=== PATIENT | male | born 1935 | race Two or more races ===

== ENCOUNTER 2017-12-06 18:55 | Observation (INO) | payer OTHER, MEDICARE ==
[2017-12-06] MEDS ORDERED: NA CHLORIDE 0.9% 1,000 ML ONE (20:05)
[2017-12-06 20:09] LABS: Absolute Lymphocytes (CBC) 0.8 K/uL (0.7-4.9); Absolute Monocytes 0.5 K/uL (0.1-1.3); Absolute Neutrophil 3.7 K/uL (1.8-8.0); Basophils % 1.2 % (0-1.3); Eosinophils % 3.1 % (0-4.4); Hematocrit 45.2 % (39.6-49.0); Lymphocytes % 15.1 % (15.3-44.8); MCH 33.8 pg (27.0-35.0); MCV 96.4 fL (80-100); MPV 8.2 fL (7.6-11.3); Monocytes % 9.7 % (3.3-12.3); RBC Red Blood Cell Count 4.69 M/uL (4.33-5.43)
[2017-12-06 20:25] LABS: Protime INR 0.97
[2017-12-06] MEDS ORDERED: METHYLPREDNISOLONE 125 MG INJ ONE (20:35)
[2017-12-06 20:38] LABS: ALT/SGPT 28 U/L (12-78); AST/SGOT 27 U/L (15-37); Alkaline Phosphatase 70 U/L (45-117); BUN Blood Urea Nitrogen 22 mg/dL (7-18); Bicarbonate 29 mmol/L (21-32); Bilirubin Direct 0.1 mg/dL (0-0.2); Bilirubin Total 0.5 mg/dL (0.2-1.0); Glucose Level 115 mg/dL (74-106); Lipase 303 U/L (73-393); Magnesium 2.5 mg/dL (1.8-2.4); NT PRO-BNP 40 pg/mL (<450); Potassium 3.6 mmol/L (3.5-5.1); Protein, Total 7.9 g/dL (6.4-8.2); Sodium Level 140 mmol/L (136-145); Troponin (Emerg Dept Use Only) < 0.02 ng/mL (0.0-0.045)
--- NOTE | 2017-12-06 21:25 | ER ---
Nurse's Notes [facility] Name: Emile Pereira Age: 82 yrs Sex: Male : 1935 Arrival Date: 12/06/2017 Time: 18:57 Bed 8 Private MD: Sumeet Connelly Diagnosis: Chronic obstructive pulmonary disease with (acute) exacerbation;Hypotension-resolved Presentation: 12/06 19:04 Presenting complaint: Patient states: Low BP since 1200 today. Systolic reportedly ss 80/?? per patient. Patient was told to come be evaluated in ER by Dr. Melendez. Transition of care: patient was not received from another setting of care. Onset of symptoms was December 06, 2017. Risk Assessment: Do you want to hurt yourself or someone else? Patient reports no desire to harm self or others. Initial Sepsis Screen: Does the patient meet any 2 criteria? No. Patient's initial sepsis screen is negative. Does the patient have a suspected source of infection? No. Patient's initial sepsis screen is negative. Care prior to arrival: None. 19:04 Method Of Arrival: Ambulatory ss 19:04 Acuity: SONNY 3 ss Historical: - Allergies: 19:38 "All antibiotics except clindamycin"; aa1 - Home Meds: 19:38 valsartan 160 mg oral tab 1 tab once daily [Active]; spironolactone 25 mg Oral tab 1 aa1 tab as needed [Active]; mometasone inhalation inhalation [Active]; Xopenex Inhl [Active]; Singulair 10 mg Oral tab 1 tab once daily [Active]; - PMHx: 19:38 Hypertension; Asthma; aa1 - PSHx: 19:38 None; aa1 - Immunization history:: Pneumococcal vaccine is not up to date, Flu vaccine is not up to date. - Social history:: Smoking status: Patient/guardian denies using tobacco. - Ebola Screening: : Patient denies exposure to infectious person Patient denies travel to an Ebola-affected area in the 21 days before illness onset. - Family history:: not pertinent. Screenin:28 Abuse screen: Denies threats or abuse. Denies injuries from another. Nutritional aa1 screening: No deficits noted. Tuberculosis screening: No symptoms or risk factors identified. Fall Risk None identified. Assessment: 19:28 General: Appears in no apparent distress. comfortable, slender, Behavior is calm, aa1 cooperative, appropriate for age. Pain: Denies pain. Neuro: Level of Consciousness is awake, alert, obeys commands, Oriented to person, place, time, situation, Moves all extremities. Full function Gait is steady, Speech is normal, Facial symmetry appears normal, Pupils are PERRLA. Cardiovascular: Denies chest pain, diaphoresis, palpitations, shortness of breath, Heart tones S1 S2 present Rhythm is regular. Respiratory: Airway is patent Respiratory effort is even, unlabored, Respiratory pattern is regular, symmetrical, Denies shortness of breath. GI: Abdomen is non-distended, Reports nausea, Patient currently denies abdominal pain, diarrhea, vomiting. : No signs and/or symptoms were reported regarding the genitourinary system. EENT: No signs and/or symptoms were reported regarding the EENT system. Derm: Skin is intact, is healthy with good turgor, Skin is pink, warm \\T\\ dry. Musculoskeletal: Circulation, motion, and sensation intact. Capillary refill < 3 seconds. 20:30 Reassessment: Patient appears in no apparent distress at this time. Patient and/or aa1 family updated on plan of care and expected duration. Pain level reassessed. Patient is alert, oriented x 3, equal unlabored respirations, skin warm/dry/pink. Awaiting lab results. 21:27 Reassessment: Patient appears in no apparent distress at this time. Patient and/or aa1 family updated on plan of care and expected duration. Pain level reassessed. Patient is alert, oriented x 3, equal unlabored respirations, skin warm/dry/pink. Pt to be admitted, awaiting bed assignment. 21:40 Reassessment: Bed assignment received, awaiting admission orders from Dr. Diehl. aa1 22:30 Reassessment: Patient appears in no apparent distress at this time. Patient and/or aa1 family updated on plan of care and expected duration. Pain level reassessed. Patient is alert, oriented x 3, equal unlabored respirations, skin warm/dry/pink. Still awaiting admission orders from Dr. Deihl. 22:48 Reassessment: Attempted to call report to 4th floor, nurse states she will call back aa1 shortly. 23:30 Reassessment: Patient appears in no apparent distress at this time. Patient and/or aa1 family updated on plan of care and expected duration. Pain level reassessed. Patient is alert, oriented x 3, equal unlabored respirations, skin warm/dry/pink. Receiving nurse on floor is with critical pt as well as charge nurse. Floor staff reports they will have nurse call for report as soon as she is able. 12/07 00:10 Reassessment: Patient appears in no apparent distress at this time. Patient is alert, aa1 oriented x 3, equal unlabored respirations, skin warm/dry/pink. Report given to 4th floor. Vital Signs: 12/06 19:04 BP 127 / 82; Pulse 87; Resp 16; Temp 98.4(O); Pulse Ox 96% on R/A; Weight 56.25 kg; ss Height 5 ft. 3 in. (160.02 cm); Pain 0/10; 20:00 BP 127 / 92; Pulse 80; Resp 16; Pulse Ox 99% on R/A; Pain 0/10; aa1 21:07 BP 131 / 80; Pulse 86; Resp 16; Pulse Ox 98% on R/A; Pain 0/10; aa1 21:30 BP 138 / 76 Supine; Pulse 89; Resp 18 S; Pulse Ox 98% on R/A; cc 21:30 BP 131 / 70 Sitting; Pulse 88; Resp 18 S; Pulse Ox 97% on R/A; cc 21:30 BP 148 / 92 Standing; Pulse 94; Resp 19 S; Pulse Ox 97% on R/A; cc 22:31 BP 146 / 85; Pulse 87; Resp 18; Temp 98.5; Pulse Ox 98% on R/A; Pain 0/10; aa1 12/07 00:00 BP 147 / 92; Pulse 91; Resp 16; Pulse Ox 98% on R/A; Pain 0/10; aa1 12/06 19:04 Body Mass Index 21.97 (56.25 kg, 160.02 cm) NIH Stroke Scale Scores: 12/06 20:15 NIHSS Score: 0 [place] ED Course: 18:57 Patient arrived in ED. mr 18:57 Sumeet Connelly MD is Private Physician. mr 19:00 Gaviota Veliz RN is Primary Nurse. aa1 19:04 Arm band placed on right wrist. 19:05 Triage completed. 19:25 Chris Dill MD is Attending Physician. alan 19:25 EKG done, by ED staff, reviewed by Chris Dill MD. aa1 19:28 Patient has correct armband on for positive identification. Placed in gown. Bed in low aa1 position. Call light in reach. hospital monitor on. Pulse ox on. NIBP on. 19:45 Initial lab(s) drawn, by me, sent to lab. First set of blood cultures drawn by me. cc Inserted saline lock: 20 gauge in left antecubital area, using aseptic technique. Blood collected. 21:24 Priscilla Diehl MD is Hospitalizing Provider. alan 22:32 No provider procedures requiring assistance completed. Patient admitted, IV remains in aa1 place. Administered Medications: 20:04 Drug: NS 0.9% 500 ml Route: IV; Rate: bolus; Site: right antecubital; aa1 21:09 Follow up: IV Status: Completed infusion aa1 20:27 Not Given (Patient Refused): Xopenex 1.25 mg Inhalation once aa1 20:27 Not Given (Patient Refused): AtroVENT Aerosol 0.5 mg Inhalation once aa1 20:33 Drug: SOLU-Medrol 2 mg/kg Route: IVP; Site: left antecubital; aa1 21:27 Follow up: Response: No adverse reaction aa1 20:47 Not Given (Duplicate Order): NS 0.9% 1000 ml IV at 125 ml/hr continuous alan 21:09 Drug: NS 0.9% 1000 ml Route: IV; Rate: 125 ml/hr; Site: left antecubital; aa1 21:27 Follow up: Rate change 50 ml/hr aa1 22:32 Follow up: IV Status: Infusion continued upon admission aa1 Outcome: 21:24 Decision to Hospitalize by Provider. [place] 12/07 00:01 Admitted to Tele room 402, with chart, Report called to Michelle MEZA bb Condition: stable Instructed on the need for admit. 00:35 Patient left the ED. aa1 NIH Stroke Scale - NIH Stroke Score Date: 12/06/2017 Time: 20:15 Total Score = 0 1a. Level of Consciousness (LOC) - 0(Alert) 1b. Level of Consciousness (LOC) (Year \\T\\ Age) - 0(Both) 1c. LOC Commands (Open \\T\\ Closes Eyes/Licensed Final Expense Agents) - 0(Both) 2. Best Gaze (Lateral Gaze Paresis) - 0(Normal) 3. Visual Field Loss - 0(No visual loss) 4. Facial Palsy - 0(Normal) 5a. Left Arm: Motor (10-second hold) - 0(No drift) 5b. Right Arm: Motor (10-second hold) - 0(No drift) 6a. Left Leg: Motor (5-second hold - always test supine) - 0(No drift) 6b. Right Leg: Motor (5-second hold - always test supine) - 0(No drift) 7. Limb Ataxia (finger/nose \\T\\ heel/toney - test with eyes open) - 0(Absent) 8. Sensory Loss (pinprick arms/legs/face) - 0(Normal) 9. Best Language: Aphasia (description/naming/reading) - 0(No aphasia) 10. Dysarthria (speech clarity - read or repeat words) - 0(Normal) 11. Extinction and Inattention (visual/tactile/auditory/spatial/personal) - 0(No abnormality) Initials: alan Signatures: Gaviota Veliz, SUSANA RN aa1 Chris Dill MD MD cha Rivera, Mary mr Yris Grijalva, RN RN Vanessa Bower RN RN ss Christian, Chelsea cc
--- NOTE | 2017-12-06 21:25 | EDPHYS ---
Physician Documentation [facility] Name: Emile Pereira Age: 82 yrs Sex: Male : 1935 Arrival Date: 12/06/2017 Time: 18:57 Bed 8 Private MD: Sumeet Connelly ED Physician Chris Dill HPI: 12/06 20:12 This 82 yrs old Male presents to ER via Ambulatory with complaints of Blood alan Pressure Problem. 20:12 weak, low blood pressure. The patient presents with dizziness. Onset: The alan symptoms/episode began/occurred just prior to arrival, this morning, today. Context: occurred at home, occurred while the patient was unk. Modifying factors: The symptoms are alleviated by nothing, the symptoms are aggravated by nothing. Associated signs and symptoms: The patient has no apparent associated signs or symptoms. Associated signs and symptoms: Pertinent positives: nausea. The patient or guardian reports cough. Severity of symptoms: At their worst the symptoms were mild, moderate, in the emergency department the symptoms are unchanged. Severity of symptoms: At their worst the symptoms were mild moderate in the emergency department the symptoms are unchanged. Historical: - Allergies: 19:38 "All antibiotics except clindamycin"; aa1 - Home Meds: 19:38 valsartan 160 mg oral tab 1 tab once daily [Active]; spironolactone 25 mg Oral tab 1 aa1 tab as needed [Active]; mometasone inhalation inhalation [Active]; Xopenex Inhl [Active]; Singulair 10 mg Oral tab 1 tab once daily [Active]; - PMHx: 19:38 Hypertension; Asthma; aa1 - PSHx: 19:38 None; aa1 - Immunization history:: Pneumococcal vaccine is not up to date, Flu vaccine is not up to date. - Social history:: Smoking status: Patient/guardian denies using tobacco. - Ebola Screening: : Patient denies exposure to infectious person Patient denies travel to an Ebola-affected area in the 21 days before illness onset. - Family history:: not pertinent. ROS: 20:12 Constitutional: Negative for fever, chills, and weight loss, Eyes: Negative for injury, alan pain, redness, and discharge, ENT: Negative for injury, pain, and discharge, Neck: Negative for injury, pain, and swelling, Cardiovascular: Negative for chest pain, palpitations, and edema, Abdomen/GI: Negative for abdominal pain, nausea, vomiting, diarrhea, and constipation, Back: Negative for injury and pain, : Negative for injury, bleeding, discharge, and swelling, MS/Extremity: Negative for injury and deformity, Skin: Negative for injury, rash, and discoloration, Neuro: Negative for headache, weakness, numbness, tingling, and seizure, Psych: Negative for depression, anxiety, suicide ideation, homicidal ideation, and hallucinations, Allergy/Immunology: Negative for hives, rash, and allergies, Endocrine: Negative for neck swelling, polydipsia, polyuria, polyphagia, and marked weight changes, Hematologic/Lymphatic: Negative for swollen nodes, abnormal bleeding, and unusual bruising. 20:12 Respiratory: Positive for cough. 20:12 Neuro: Positive for dizziness. Exam: 20:12 Constitutional: This is a well developed, well nourished patient who is awake, alert, alan and in no acute distress. Head/Face: Normocephalic, atraumatic. Eyes: Pupils equal round and reactive to light, extra-ocular motions intact. Lids and lashes normal. Conjunctiva and sclera are non-icteric and not injected. Cornea within normal limits. Periorbital areas with no swelling, redness, or edema. ENT: Nares patent. No nasal discharge, no septal abnormalities noted. Tympanic membranes are normal and external auditory canals are clear. Oropharynx with no redness, swelling, or masses, exudates, or evidence of obstruction, uvula midline. Mucous membranes moist. Neck: Trachea midline, no thyromegaly or masses palpated, and no cervical lymphadenopathy. Supple, full range of motion without nuchal rigidity, or vertebral point tenderness. No Meningismus. Chest/axilla: Normal chest wall appearance and motion. Nontender with no deformity. No lesions are appreciated. Cardiovascular: Regular rate and rhythm with a normal S1 and S2. No gallops, murmurs, or rubs. Normal PMI, no JVD. No pulse deficits. Abdomen/GI: Soft, non-tender, with normal bowel sounds. No distension or tympany. No guarding or rebound. No evidence of tenderness throughout. Back: No spinal tenderness. No costovertebral tenderness. Full range of motion. Male : Normal genitalia with no discharge or lesions. Skin: Warm, dry with normal turgor. Normal color with no rashes, no lesions, and no evidence of cellulitis. MS/ Extremity: Pulses equal, no cyanosis. Neurovascular intact. Full, normal range of motion. Neuro: Awake and alert, GCS 15, oriented to person, place, time, and situation. Cranial nerves II-XII grossly intact. Motor strength 5/5 in all extremities. Sensory grossly intact. Cerebellar exam normal. Normal gait. Psych: Awake, alert, with orientation to person, place and time. Behavior, mood, and affect are within normal limits. 20:12 Respiratory: the patient does not display signs of respiratory distress, Breath sounds: rhonchi, wheezing: expiratory is heard in the left posterior lower lobe, right posterior middle lobe and right posterior lower lobe, Respiratory rate: 16 Vital Signs: 19:04 BP 127 / 82; Pulse 87; Resp 16; Temp 98.4(O); Pulse Ox 96% on R/A; Weight 56.25 kg; ss Height 5 ft. 3 in. (160.02 cm); Pain 0/10; 20:00 BP 127 / 92; Pulse 80; Resp 16; Pulse Ox 99% on R/A; Pain 0/10; aa1 21:07 BP 131 / 80; Pulse 86; Resp 16; Pulse Ox 98% on R/A; Pain 0/10; aa1 21:30 BP 138 / 76 Supine; Pulse 89; Resp 18 S; Pulse Ox 98% on R/A; cc 21:30 BP 131 / 70 Sitting; Pulse 88; Resp 18 S; Pulse Ox 97% on R/A; cc 21:30 BP 148 / 92 Standing; Pulse 94; Resp 19 S; Pulse Ox 97% on R/A; cc 22:31 BP 146 / 85; Pulse 87; Resp 18; Temp 98.5; Pulse Ox 98% on R/A; Pain 0/10; aa1 12/07 00:00 BP 147 / 92; Pulse 91; Resp 16; Pulse Ox 98% on R/A; Pain 0/10; aa1 12/06 19:04 Body Mass Index 21.97 (56.25 kg, 160.02 cm) NIH Stroke Scale Scores: 12/06 20:15 NIHSS Score: 0 alan MDM: 19:33 Patient medically screened. alan 20:12 Data reviewed: vital signs, nurses notes, lab test result(s), EKG, radiologic studies, [facility] CT scan, plain films. 12/06 19:31 Order name: Basic Metabolic Panel; Complete Time: 20:45 [facility] 12/06 19:31 Order name: CBC with Diff; Complete Time: 20:45 [facility] 12/06 19:31 Order name: LFT's; Complete Time: 20:45 [facility] 12/06 19:31 Order name: Magnesium; Complete Time: 20:45 [facility] 12/06 19:31 Order name: NT PRO-BNP; Complete Time: 20:45 [facility] 12/06 19:31 Order name: PT-INR; Complete Time: 20:45 [facility] 12/06 19:31 Order name: Troponin (emerg Dept Use Only); Complete Time: 20:45 [facility] 12/06 19:31 Order name: Lipase; Complete Time: 20:45 [facility] 12/06 19:31 Order name: Urine Culture [facility] 12/06 19:31 Order name: Blood Culture Adult (2) [facility] 12/06 19:31 Order name: Procalcitonin; Complete Time: 21:23 [facility] 12/06 22:17 Order name: Urine Dipstick--Ancillary (enter results) [place] 12/06 19:28 Order name: EKG; Complete Time: 19:44 [facility] 12/06 19:28 Order name: EKG - Nurse/Tech; Complete Time: 19:28 [facility] 12/06 19:31 Order name: Cardiac monitoring; Complete Time: 19:36 [facility] 12/06 19:31 Order name: IV Saline Lock; Complete Time: 19:55 [facility] 12/06 19:31 Order name: Labs collected and sent; Complete Time: 19:56 [facility] 12/06 19:31 Order name: O2 Per Protocol; Complete Time: 19:35 [facility] 12/06 19:31 Order name: O2 Sat Monitoring; Complete Time: 19:35 [facility] 12/06 19:31 Order name: Urine Dipstick-Ancillary (obtain specimen); Complete Time: 22:12 [facility] 12/06 21:17 Order name: Orthostatics; Complete Time: 21:27 12/06 21:29 Order name: CONS Physician Consult EDMS Administered Medications: 20:04 Drug: NS 0.9% 500 ml Route: IV; Rate: bolus; Site: right antecubital; aa1 21:09 Follow up: IV Status: Completed infusion aa1 20:27 Not Given (Patient Refused): Xopenex 1.25 mg Inhalation once aa1 20:27 Not Given (Patient Refused): AtroVENT Aerosol 0.5 mg Inhalation once aa1 20:33 Drug: SOLU-Medrol 2 mg/kg Route: IVP; Site: left antecubital; aa1 21:27 Follow up: Response: No adverse reaction aa1 20:47 Not Given (Duplicate Order): NS 0.9% 1000 ml IV at 125 ml/hr continuous alan 21:09 Drug: NS 0.9% 1000 ml Route: IV; Rate: 125 ml/hr; Site: left antecubital; aa1 21:27 Follow up: Rate change 50 ml/hr aa1 22:32 Follow up: IV Status: Infusion continued upon admission aa1 Disposition: 12/06/17 21:24 Hospitalization ordered by Priscilla Diehl for Observation. Preliminary diagnosis are Chronic obstructive pulmonary disease with (acute) exacerbation, Hypotension - resolved. - Bed requested for Telemetry/MedSurg (observation). - Status is Observation. aa1 - Condition is Fair. - Problem is new. - Symptoms have improved. UTI on Admission? No NIH Stroke Scale - NIH Stroke Score Date: 12/06/2017 Time: 20:15 Total Score = 0 1a. Level of Consciousness (LOC) - 0(Alert) 1b. Level of Consciousness (LOC) (Year \\T\\ Age) - 0(Both) 1c. LOC Commands (Open \\T\\ Closes Eyes/Head Start Director) - 0(Both) 2. Best Gaze (Lateral Gaze Paresis) - 0(Normal) 3. Visual Field Loss - 0(No visual loss) 4. Facial Palsy - 0(Normal) 5a. Left Arm: Motor (10-second hold) - 0(No drift) 5b. Right Arm: Motor (10-second hold) - 0(No drift) 6a. Left Leg: Motor (5-second hold - always test supine) - 0(No drift) 6b. Right Leg: Motor (5-second hold - always test supine) - 0(No drift) 7. Limb Ataxia (finger/nose \\T\\ heel/toney - test with eyes open) - 0(Absent) 8. Sensory Loss (pinprick arms/legs/face) - 0(Normal) 9. Best Language: Aphasia (description/naming/reading) - 0(No aphasia) 10. Dysarthria (speech clarity - read or repeat words) - 0(Normal) 11. Extinction and Inattention (visual/tactile/auditory/spatial/personal) - 0(No abnormality) Initials: alan Signatures: Dispatcher [employer] EDMS Shweta Muñoz RN RN Gaviota Veliz RN RN aa1 Buffy Steward RN RN aj Anderson, Corey, MD MD cha Smirch, Shelby, RN RN ss Corrections: (The following items were deleted from the chart) 20:32 19:45 Chest Single View+[id number] ordered. EDMS EDMS 21:39 21:24 Hospitalization Ordered by Priscilla Diehl MD for Observation. Preliminary diagnosis is Chronic obstructive pulmonary disease with (acute) exacerbation; Hypotension - resolved. Bed requested for Telemetry/MedSurg (observation). Status is Observation. Condition is Fair. Problem is new. Symptoms have improved. UTI on Admission? No. [facility] 12/07 00:35 12/06 21:39 12/06/2017 21:24 Hospitalization Ordered by Priscilla Diehl MD for aa1 Observation. Preliminary diagnosis is Chronic obstructive pulmonary disease with (acute) exacerbation; Hypotension - resolved. Bed requested for Telemetry/MedSurg (observation). Status is Observation. Condition is Fair. Problem is new. Symptoms have improved. UTI on Admission? No. mw
[2017-12-06] MEDS ORDERED: ONDANSETRON 4 MG/2 ML VIAL IV PRN (22:28)
[2017-12-06] MEDS ORDERED: ACETAMINOPHEN 500 MG TAB PO PRN (22:28)
[2017-12-06] MEDS: NA CHLORIDE 0.9% 1,000 ML IV SCH (23:00)
[2017-12-07 00:47] VITALS: O2SAT 98
[2017-12-07 01:00] VITALS: BMI 22.8
[2017-12-07 01:10] LABS: Urine Blood NEGATIVE (NEG); Urine Glucose NEGATIVE (NEG); Urine Protein NEGATIVE (NEG); Urine Specific Gravity 1.015 (1.005-1.030); Urine pH 5.5 (5.0-7.0)
[2017-12-07 06:01] LABS: Absolute Lymphocytes (CBC) 0.4 K/uL (0.7-4.9); Absolute Neutrophil 4.9 K/uL (1.8-8.0); Basophils % 0.2 % (0-1.3); Hematocrit 43.9 % (39.6-49.0); Lymphocytes % 7.1 % (15.3-44.8); MCH 34.4 pg (27.0-35.0); MCV 96.3 fL (80-100); MPV 8.5 fL (7.6-11.3); Monocytes % 0.3 % (3.3-12.3); RBC Red Blood Cell Count 4.56 M/uL (4.33-5.43)
[2017-12-07 06:14] LABS: Albumin 3.7 g/dL (3.4-5.0); Bilirubin Total 0.4 mg/dL (0.2-1.0); Potassium 4.3 mmol/L (3.5-5.1); Protein, Total 7.5 g/dL (6.4-8.2)
[2017-12-07 06:39] LABS: Protime INR 1.01
--- NOTE | 2017-12-07 06:43 | EKG ---
Test Date: 2017-12-06 Test Time: 19:24:34 Painting Contractor: DAGOBERTO MEASUREMENT RESULTS: Intervals: Rate: 73 FL: 202 QRSD: 108 QT: 388 QTc: 427 [place]: P: 77 FL: 202 QRS: 23 T: 65 INTERPRETIVE STATEMENTS: Normal sinus rhythm Normal ECG Compared to ECG 05/09/2015 23:33:59 No significant changes Electronically Signed On 12-07-17 06:43:10 CDT by Endy Melendez
[2017-12-07 07:19] LABS: Platelet Estimate ADEQ; Urine White Blood Cell Casts OK
[2017-12-07 07:20] LABS: Blood Morphology Comment NOT SEEN (NOT SEEN)
[2017-12-07] MEDS ORDERED: LEVALBUTEROL TARTRATE IH SCH (08:00)
[2017-12-07] MEDS: NA CHLORIDE 0.9% 1,000 ML IV SCH (08:09)
[2017-12-07] MEDS ORDERED: VALSARTAN 80 MG TAB PO SCH (09:00)
[2017-12-07] MEDS ORDERED: MOMETASONE FUROATE IH SCH (09:00)
--- NOTE | 2017-12-07 11:12 | P.HP ---
Certification for Inpatient Patient admitted to: Observation With expected LOS: <2 Midnights Patient will require the following post-hospital care: None Practitioner: I am a practitioner with admitting privileges, knowledge of patient current condition, hospital course, and medical plan of care. 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 Patient had been monitoring his blood pressure at home after he was told that he had arrhythmias a week prior. Patient had multiple PVCs as well as bigeminy. Patient notified his netting inspector when he checked his blood pressure and it was running low. He tried to drink some coffee intake a nap but even when he awoke his blood pressure was 80 over 50s. He decided come to the emergency room for further evaluation. In the emergency room patient was clinically stable & his initial blood pressure was 130s over 70s. Since his blood pressure has been running 80s over 50 throughout the day. We decided to admit him to the hospital for observation and place him on telemetry with a cardiology consultation. Allergies aspirin Allergy (Verified 12/07/17 07:45) Anaphylaxis Hlempst-Hex-Cut Reductase Inhibitor Adverse Reaction (Severe, Verified 12/07/17 07:45) seecom All antibiotics except clindamycin Allergy (Uncoded 12/26/14 20:28) Unknown Home Medications: Calcium Citrate [Calcitrate] 600 mg PO SEECOM 12/07/17 Cholecalciferol (Vitamin D3) [Vitamin D3] 2,000 unit PO SEECOM 12/07/17 Curopro 1,000 mg PO DAILY 12/07/17 Cyanocobalamin (Vitamin B-12) [Vitamin B12] 1,000 mcg PO DAILY 12/07/17 Folic Acid 0.4 mg PO SEECOM 12/07/17 Levalbuterol Tartrate [Levalbuterol Tartrate Hfa] 2 puff IH PRN 12/07/17 Magnesium Oxide [Magnesium] 500 mg PO DAILY 12/07/17 Mometasone Furoate [Asmanex Hfa] 2 puff IH BID 12/07/17 Montelukast [Singulair] 10 mg PO BEDTIME 12/07/17 Ubidecarenone [Co Q-10] 100 mg PO DAILY 12/07/17 Valsartan [Diovan] 160 mg PO DAILY 12/07/17 - Past Medical/Surgical History Has patient received pneumonia vaccine in the past: Yes Diabetic: No -: HTN -: Asthma -: Prostate Cancer -: hepatitix B -: Tonsilectomy -: Lump removed from left leg -: David cataract sx - Family History Mother Medical History: Hypertension, Other (see notes) Notes: alzeheimers Father History Unknown: Yes Notes: at age 24 from possible trauma - Social History Smoking Status: Never smoker Alcohol use: No CD- Drugs: No Caffeine use: Yes Place of Residence: Home Review of Systems 10-point ROS is otherwise unremarkable Physical Examination - Vital Signs Temperature: 97.4 F Blood Pressure: 140/71 Pulse: 98 Respirations: 16 Pulse Ox (%): 97 - Physical Exam General: Alert, In no apparent distress, Oriented x3 HEENT: Atraumatic, PERRLA, Mucous membr. moist/pink, EOMI, Sclerae nonicteric Neck: Supple, 2+ carotid pulse no bruit, No LAD, Without JVD or thyroid abnormality Respiratory: Clear to auscultation bilaterally, Normal air movement Cardiovascular: Regular rate/rhythm, Normal S1 S2, No murmurs Gastrointestinal: Normal bowel sounds, Soft and benign, Non-distended, No tenderness Musculoskeletal: No clubbing, No swelling, No tenderness Integumentary: No rashes Neurological: Normal gait, Normal speech, Normal strength at 5/5 x4 extr, Normal tone, Sensation intact, Cranial nerves 3-12 intact, Normal affect Lymphatics: No axilla or inguinal lymphadenopathy - Studies Laboratory Data (last 24 hrs) 12/06/17 19:45: PT 11.5, INR 0.97 12/06/17 19:45: WBC 5.2, Hgb 15.8, Hct 45.2, Plt Count 188 12/06/17 19:45: Sodium 140, Potassium 3.6, BUN 22 H, Creatinine 1.20, Glucose 115 H, Magnesium 2.5 H, Total Bilirubin 0.5, AST 27, ALT 28, Alkaline Phosphatase 70, Lipase 303 Assessment & Plan - Problems (Diagnosis) (1) Hypotension Current Visit: Yes Status: Acute (2) Asthma exacerbation Current Visit: Yes Status: Acute (3) Hepatitis B Current Visit: Yes Status: Acute (4) History of prostate cancer Current Visit: Yes Status: Acute - Plan Plan: 1. Gentle hydration 2. Monitor vital signs closely 3. Echocardiogram 4. Cardiology consultation 5. Serial troponins and EKG along with a BNP 6. DVT prophylaxis Discharge Plan: Home Plan to discharge in: 24 Hours - Advance Directives Does patient have a Living Will: Yes Does patient have a Durable POA for Healthcare: Yes - Code Status/Comfort Care Code Status Assessed: Yes Code Status: Full Code Critical Care: No Time Spent Managing PTS Care (In Minutes): 45
[2017-12-07 11:49] VITALS: BP 123/66; TEMP 98
--- NOTE | 2017-12-07 16:39 | CON ---
Reason For Consult: Low blood pressure. History Of Present Illness: Kelli is known to have hypertension; dyslipidemia, but he is intoler ant to statins. He has normal coronary arteries by cardiac cath done at least twice. He came to the hospital because his blood pressure was low. We have not actually recorded any low blood pressures here, so it is possible that the low blood pressure measurements are a machine error, although that s eems unlikely. He recorded numerous blood pressure measurements in the 70s and 80s. He was not feel ing terribly weak or dizzy. Overnight, his blood pressures have all been in the normal range with to day's actually a little bit high. Medications: Outpatient medications are magnesium oxide, mometasone, valsartan, Singulair, CoQ10, vi tamin B12, vitamin D3, calcium citrate, Chlorpro, levalbuterol inhaler or puffer, and folic acid. Past Medical History: He has underlying asthma. Allergies: HE IS ALLERGIC TO ASPIRIN AND STATINS. Physical Examination: VITAL SIGNS: Five feet and 3 inches, 128 pounds. HEENT: Normal. Lungs: Clear. Cardiac: Within normal limits. Extremities: Normal. He has had a lot of evaluations including chest x-ray, EKG, blood tests; all look normal. He is not in any distress. I think he could be discharged home. I would recommend he hold the valsartan at [facility] until we know he is not going to be hypotensive again and we can resume it later, perhaps a smaller d ose. MICK Voice ID: [id number] Report ID: [id number]
[2017-12-07] MEDS ORDERED: MONTELUKAST 10 MG TAB PO SCH (21:00)
== END 2017-12-07 13:53 | disposition home or self-care (01) ==
LOC: ER 18:55 → ERHOLD 21:26 → 4TH 12-07 00:10
PROVIDERS: ADMIT Hospitalist; ATTEND Hospitalist
DX: I95.9 Hypotension, unspecified (principal); J45.901 Unspecified asthma with (acute) exacerbation; B16.9 Acute hepatitis B without delta-agent and without hepatic coma; I10 Essential (primary) hypertension; Z85.46 Personal history of malignant neoplasm of prostate; Z88.6 Allergy status to analgesic agent
CPT/HCPCS: 36415; 80048; 80053; 80076; 81003; 83690; 83735; 83880; 84145; 84484; 85025 ×2; 85610 ×2; 85730; 87040 ×2; 87088; 93005; 96361; 96374; 99285; G0378 ×2; J2930; J7030 ×3; 87086

== ENCOUNTER 2024-06-14 10:40 | Observation (INO) | payer OTHER, MEDICARE ==
--- NOTE | 2024-06-14 11:18 | RAD REPORT ---
Procedure: Chest Single View HISTORY: Syncope COMPARISON: 2023 FINDINGS: The lungs appear clear of acute infiltrate. No significant pleural effusion noted. The heart is mildly enlarged. . IMPRESSION: No acute abnormality is displayed.
[2024-06-14 11:19] LABS: Absolute Eosinophils 0.1 K/uL (0-0.5); Absolute Lymphocytes (CBC) 0.7 K/uL (0.7-4.9); Absolute Monocytes 0.4 K/uL (0.1-1.3); Absolute Neutrophil 2.9 K/uL (1.8-8.0); Basophils % 0.4 % (0-1.3); Eosinophils % 1.8 % (0-4.4); Hematocrit 47.4 % (39.6-49.0); Hemoglobin 16.6 g/dL (13.6-17.9); MCH 33.3 pg (27.0-35.0); MCV 95.3 fL (80-100); MPV 8.1 fL (7.6-11.3); Neutrophils % 71.8 % (41.7-73.7); Platelets 133 thou/uL (152-406); RBC Red Blood Cell Count 4.97 M/uL (4.33-5.43); Red Cell Distribution Width 13.9 % (12.1-15.2)
[2024-06-14 11:25] LABS: PT Prothrombin Time 10.2 SECONDS (10-13.0); PTT, Activated Partial Thromb 27.1 SECONDS (27.2-37.4); Protime INR 0.89
--- NOTE | 2024-06-14 11:28 | RAD REPORT ---
EXAM: CT brain without contrast HISTORY: Syncope COMPARISON: 2014 TECHNIQUE: Multiple contiguous axial images were obtained and a CT of the brain without contrast.. Sagittal and coronal reconstruction performed. Automated exposure control, adjustment of the mA and/or kV according to patient size, and/or iterative reconstruction. Unless otherwise specified, incidental f indings do not require dedicated imaging follow-up FINDINGS: An intracranial bleed is not seen Ventricles are normal caliber No extra-axial fluid collection noted No significant hypodensity within the brain No fluid within the visualized sinuses or mastoids noted. A couple of air bubbles are present within the region of the masseter muscles and adjacent subcutaneo us tissue bilaterally. IMPRESSION: No acute intracranial abnormality noted. A couple of air bubbles within the region of the masseters and adjacent subcutaneous tissues bilatera lly of uncertain etiology. It could be due to infection, trauma or be spontaneous. If the patient continues to have symptoms to suggest an acute intracranial abnormality then MRI of th e brain would be recommended.
[2024-06-14 11:41] LABS: Albumin/Globulin Ratio 1.2 (1.1-1.8); Anion Gap 6.8 mEq/L (5.0-15.0); Bilirubin Direct 0.2 mg/dL (0-0.2); Bilirubin Indirect, Calculated 0.5 mg/dL (0.2-0.8); Bilirubin Total 0.7 mg/dL (0.2-1.0); Globulin 3.4 g/dL (2.3-3.5); Magnesium 2.8 mg/dL (1.6-2.4); Potassium 3.8 mEq/L (3.5-5.1); Protein, Total 7.4 g/dL (6.4-8.2); Troponin High Sensitivity 7.4 pg/mL (<58.9)
--- NOTE | 2024-06-14 12:32 | ER ---
Nurse's Notes [facility] Name: Emile Pereira Age: 89 yrs Sex: Male : 1935 Arrival Date: 06/14/2024 Time: 10:40 Bed 18 Private MD: Diagnosis: Syncope;Altered mental status, unspecified Presentation: 06/14 10:45 Chief complaint: EMS states: LOSS OF CONSCIOUSNESS WHILE GARDENING. Coronavirus screen: bp At this time, the client does not indicate any symptoms associated with coronavirus-19. Ebola Screen: No symptoms or risks identified at this time. Initial Sepsis Screen: Does the patient meet any 2 criteria? No. Patient's initial sepsis screen is negative. Does the patient have a suspected source of infection? No. Patient's initial sepsis screen is negative. Risk Assessment: Do you want to hurt yourself or someone else? Patient reports no desire to harm self or others. Onset of symptoms is unknown. Care prior to arrival: IV initiated. 20 GA, in the right antecubital area, Glucose check: 99. 10:45 Method Of Arrival: EMS: [facility] bp 10:45 Acuity: SONNY 3 bp Triage Assessment: 10:46 General: Appears in no apparent distress. comfortable, Behavior is calm, cooperative, bp appropriate for age. Pain: Complains of pain in head. EENT: No deficits noted. Neuro: Reports a syncopal episode. Cardiovascular: Rhythm is sinus rhythm. Respiratory: No deficits noted. GI: No signs and/or symptoms were reported involving the gastrointestinal system. : No signs and/or symptoms were reported regarding the genitourinary system. Derm: No signs and/or symptoms reported regarding the dermatologic system. Musculoskeletal: No deficits noted. Historical: - Allergies: 10:46 Aspirin; bp - PMHx: 10:46 Asthma; Hypertension; bp - Immunization history:: Adult Immunizations up to date. - Infectious Disease History:: Denies. - Social history:: Smoking status: Patient denies any tobacco usage or history of. - Family history:: not pertinent. - Hospitalizations: : No recent hospitalization is reported. Screenin:47 [facility] ED Fall Risk Assessment (Adult) History of falling in the last 3 months, bp including since admission No falls in past 3 months (0 pts) Confusion or Disorientation No (0 pts) Intoxicated or Sedated No (0 pts) Impaired Gait No (0 pts) Mobility Assist Device Used No (0 pt) Altered Elimination No (0 pt) Score/Fall Risk Level 0 - 2 = Low Risk Oriented to surroundings. Abuse screen: Denies threats or abuse. Denies injuries from another. Nutritional screening: No deficits noted. Tuberculosis screening: No symptoms or risk factors identified. Assessment: 10:48 General: Appears in no apparent distress. comfortable, Behavior is calm, cooperative, bp appropriate for age. 14:07 Reassessment: REPORT FAXED TO 409. bp Vital Signs: 10:45 BP 170 / 80; Pulse 75; Resp 16; Temp 98; Pulse Ox 98% ; bp 11:56 BP 164 / 98 Supine; Pulse 77; rk3 11:56 BP 187 / 97 Sitting; Pulse 80; rk3 11:56 BP 178 / 93 Standing; Pulse 76; rk3 14:07 BP 177 / 86; Pulse 82; Resp 15; Pulse Ox 97% ; bp ED Course: 10:44 Patient arrived in ED. bp 10:46 Triage completed. bp 10:46 Arm band placed on. bp 10:47 Patient has correct armband on for positive identification. bp 10:47 Maintain EMS IV. Dressing intact. Good blood return noted. Site clean \T\ dry. Gauge \T\ bp site: 20 RAC. Flushed with 10 mL NS. 10:48 Maksim Jiang, RN is Primary Nurse. bp 10:49 Kyle Shields MD is Attending Physician. rn 11:12 Chest Single View XRAY In Process Unspecified. EDMS 11:15 CT Head Brain wo Cont In Process Unspecified. EDMS 12:32 Elliot Castro PA is Hospitalizing Provider. rn 14:08 No provider procedures requiring assistance completed. Patient admitted, IV remains in bp place. Administered Medications: No medications were administered Medication: 14:09 VIS not applicable for this client. bp Outcome: 12:32 Decision to Hospitalize by Provider. rn 14:08 Admitted to Med/surg accompanied by tech, via stretcher, room 409, bp 14:08 Condition: stable 14:08 Instructed on the need for admit, 14:39 Patient left the ED. bp Signatures: Dispatcher [employer] EDMS Kyle Shields MD MD rn Peltier, Brian, SUSANA RN bp Karim, Rozana rk3
--- NOTE | 2024-06-14 12:32 | EDPHYS ---
Physician Documentation [facility] Name: Emile Pereira Age: 89 yrs Sex: Male : 1935 Arrival Date: 06/14/2024 Time: 10:40 Bed 18 Private MD: ED Physician Kyle Shields HPI: 06/14 10:53 This 89 yrs old [place] Male presents to ER via EMS with complaints of LOSS OF rn CONSCIOUSNESS. 10:53 The patient has experienced syncope. Onset: The symptoms/episode began/occurred just rn prior to arrival. Duration: This was a single episode. Associated injury: The patient did not suffer any apparent associated injury. Current symptoms: confusion. The patient has not experienced similar symptoms in the past. Spouse reports was getting him breakfast or brunch patient had not eaten anything yet but had used his inhaler as he does daily, took his blood pressure medication, and had taken a sublingual nitroglycerin. states she came back to the dining room to find him on the ground. EMS reports initial blood pressure in the 80s systolic but came back up to 170/80. Patient does not recall any events prior to episode. states when he woke up he was incoherent. Now is much clearer but still does not remember events. Denies focal weakness or numbness. No headache. No neck or back injury or pain. No rib pain. Denies any recent abdominal issues including pain or vomiting/diarrhea. No blood in stool. Spouse reports recent cardiac workup that did not reveal any abnormalities. Not sure why he took nitroglycerin today.. Historical: - Allergies: 10:46 Aspirin; bp - PMHx: 10:46 Asthma; Hypertension; bp - Immunization history:: Adult Immunizations up to date. - Infectious Disease History:: Denies. - Social history:: Smoking status: Patient denies any tobacco usage or history of. - Family history:: not pertinent. - Hospitalizations: : No recent hospitalization is reported. ROS: 10:53 Constitutional: Negative for fever, chills, and weight loss, Neck: Negative for injury, rn pain, and swelling, Cardiovascular: Negative for chest pain, palpitations, and edema, Respiratory: Negative for shortness of breath, cough, wheezing, and pleuritic chest pain, Abdomen/GI: Negative for abdominal pain, nausea, vomiting, diarrhea, and constipation, Back: Negative for injury and pain, MS/Extremity: Negative for injury and deformity, Skin: Negative for injury, rash, and discoloration, Neuro: Negative for headache, weakness, numbness, tingling, positive for syncope and generalized weakness with confusion Exam: 10:53 Constitutional: This is a well developed, well nourished patient who is awake, alert, rn and in no acute distress. Head/Face: Normocephalic, atraumatic. Eyes: Pupils equal round and reactive to light, extra-ocular motions intact. ENT: Dry mucous membranes Neck: No midline cervical tenderness Chest/axilla: No rib tenderness or crepitus noted Cardiovascular: Regular rate and rhythm. No pulse deficits. Respiratory: No increased work of breathing, no retractions or nasal flaring. Abdomen/GI: Soft, non-tender Skin: No cyanosis MS/ Extremity: Pulses equal, no cyanosis. Neurovascular intact. Full, normal range of motion. Equal circumference. Neuro: Awake and alert, GCS 15, oriented to person, place, and situation. Cranial nerves II-XII grossly intact. Motor strength 5/5 in all extremities. Sensory grossly intact. Cerebellar exam normal. 11:04 ECG was reviewed by the Attending Physician. rn Vital Signs: 10:45 BP 170 / 80; Pulse 75; Resp 16; Temp 98; Pulse Ox 98% ; bp 11:56 BP 164 / 98 Supine; Pulse 77; rk3 11:56 BP 187 / 97 Sitting; Pulse 80; rk3 11:56 BP 178 / 93 Standing; Pulse 76; rk3 14:07 BP 177 / 86; Pulse 82; Resp 15; Pulse Ox 97% ; bp MDM: 10:49 Medical Screening Exam initiated rn 12:30 Differential Diagnosis: cardiac arrhythmia, drug effect, idiopathic syncope, transient rn ischemic attack, vasovagal episode. Data reviewed: vital signs, nurses notes. Data reviewed: lab test result(s), EKG, radiologic studies, CT scan, plain films, and as a result, I will admit patient. Consideration of Admission/Observation Patient was admitted/placed on observation. Escalation of care including admission/observation considered. Management of patient was discussed with the following: Program Director/Music Director: Discussed case with PCP, plan is to admit to hospitalist service. Care significantly affected by the following chronic conditions: Hypertension. Counseling: I had a detailed discussion with the patient and/or guardian regarding the historical points, exam findings, and any diagnostic results supporting the discharge/admit diagnosis, the presence of at least one elevated blood pressure reading (>120/80) during this emergency department visit, lab results, radiology results, the need for further work-up and treatment in the hospital. ED course: states still confused, she is very concerned about patient and would like patient admitted for neurology consultation. I am reassured that patient had negative cardiac workup recently with Dr. Walsh and troponin negative here. CT head negative and reassuring given patient reports recent headaches.. 06/14 10:50 Order name: Basic Metabolic Panel; Complete Time: 11:59 rn 06/14 10:50 Order name: CBC with Diff; Complete Time: 11: rn 06/14 10:50 Order name: Hepatic Function; Complete Time: 11: rn 06/14 10:50 Order name: Magnesium; Complete Time: 11: rn 06/14 10:50 Order name: Protime (+inr); Complete Time: 11: rn 06/14 10:50 Order name: Ptt, Activated; Complete Time: 11: rn 06/14 10:50 Order name: Troponin High Sensitivity; Complete Time: 11:59 rn 06/14 10:50 Order name: Urinalysis w/ reflexes; Complete Time: 12:46 rn 06/14 13:42 Order name: Basic Metabolic Panel EDMS 06/14 13:42 Order name: Basic Metabolic Panel EDMS 06/14 13:42 Order name: Basic Metabolic Panel EDMS 06/14 13:42 Order name: Basic Metabolic Panel EDMS 06/14 13:42 Order name: Basic Metabolic Panel EDMS 06/14 13:42 Order name: Basic Metabolic Panel EDMS 06/14 13:42 Order name: CBC with Automated Diff EDMS 06/14 13:42 Order name: CBC with Automated Diff EDMS 06/14 13:42 Order name: CBC with Automated Diff EDMS 06/14 13:42 Order name: CBC with Automated Diff EDMS 06/14 13:42 Order name: CBC with Automated Diff EDMS 06/14 13:42 Order name: CBC with Automated Diff EDMS 06/14 13:42 Order name: Lipid Profile EDMS 06/14 13:42 Order name: Lipid Profile EDMS 06/14 13:42 Order name: Magnesium EDMS 06/14 13:42 Order name: Magnesium EDMS 06/14 13:42 Order name: Magnesium EDMS 06/14 13:42 Order name: Magnesium EDMS 06/14 13:42 Order name: Magnesium EDMS 06/14 13:42 Order name: Magnesium EDMS 06/14 13:42 Order name: Phosphorus EDMS 06/14 13:42 Order name: Phosphorus EDMS 06/14 13:42 Order name: Phosphorus EDMS 06/14 13:42 Order name: Phosphorus EDMS 06/14 13:42 Order name: Phosphorus EDMS 06/14 13:42 Order name: Phosphorus EDMS 06/14 13:42 Order name: T4,Total EDMS 06/14 13:42 Order name: T4,Total EDMS 06/14 13:42 Order name: Thyroid Stimulating Hormone EDMS 06/14 13:42 Order name: Thyroid Stimulating Hormone EDMS 06/14 10:50 Order name: CT Head Brain wo Cont; Complete Time: 11:29 rn 06/14 10:50 Order name: Chest Single View XRAY; Complete Time: 11:29 rn 06/14 13:42 Order name: Echo with Doppler EDOK 06/14 13:43 Order name: Stroke Protocol EDOK 06/14 10:50 Order name: EKG; Complete Time: 10:51 rn 06/14 13:42 Order name: Physical Therapy Consult EDOK 06/14 13:43 Order name: Speech Therapy Consult EDOK 06/14 10:50 Order name: Cardiac monitoring; Complete Time: 11:07 rn 06/14 10:50 Order name: EKG - Nurse/Tech; Complete Time: 11:05 rn 06/14 10:50 Order name: IV Saline Lock; Complete Time: 11: rn 06/14 10:50 Order name: Labs collected and sent; Complete Time: 11:07 rn 06/14 10:50 Order name: O2 Per Protocol; Complete Time: 11: rn 06/14 10:50 Order name: O2 Sat Monitoring; Complete Time: 11:07 rn 06/14 10:50 Order name: Orthostatics; Complete Time: 11:56 rn EC:04 Rate is 77 beats/min. Rhythm is regular. QRS [place] is Normal. [place] interval is normal. QRS rn interval is normal. QT interval is normal. No Q waves. T waves are Normal. No ST changes noted. Clinical impression: NSR w/ Non-specific ST/T Changes. Interpreted by me. Reviewed by me. Administered Medications: No medications were administered Disposition Summary: 06/14/24 12:32 Hospitalization Ordered Notes: Hospitalization Status: Observation rn Provider: Elliot Castro rn Location: Telemetry/MedSurg (observation) rn Condition: Stable rn Problem: new rn Symptoms: have improved rn Bed/Room Type: Standard rn Room Assignment: 409(06/14/24 13:46) ss Diagnosis - Syncope rn - Altered mental status, unspecified rn Forms: - Medication Reconciliation Form rn - SBAR form rn - Leadership Thank You Letter rn Signatures: Dispatcher [employer] EDKyle Chan MD MD rn Blanchard, Shelby, RN RN Maksim Gilbert RN RN bp Corrections: (The following items were deleted from the chart) 13:46 12:32 rn ss
[2024-06-14 12:46] LABS: Specific Gravity 1.007 (1.005-1.030); Urine Bilirubin NEGATIVE (Negative); Urine Blood Negative (Negative); Urine Clarity Clear (Clear); Urine Color Colorless (Yellow); Urine Glucose NEGATIVE (Negative); Urine Ketones NEGATIVE (Negative); Urine Microscopic Reflex YN NO UMIC; Urine Nitrite NEGATIVE (Negative); Urine Protein NEGATIVE (Negative); Urine Urobilinogen Normal (Normal); Urine pH 7.5 (5.0-7.0)
[2024-06-14] MEDS ORDERED: ACETAMINOPHEN 500 MG TAB PO PRN (13:33)
--- NOTE | 2024-06-14 14:04 | P.HP ---
Certification for Inpatient Patient admitted to: Observation With expected LOS: <2 Midnights Patient will require the following post-hospital care: None Practitioner: I am a practitioner with admitting privileges, knowledge of patient current condition, hospital course, and medical plan of care. Services: Services provided to patient in accordance with Admission requirements found in Title 42 Section 412.3 of the Code of Federal Regulations Patient History Date of Service: 06/14/24 Reason for admission: Medication induced syncope History of Present Illness: Emile Pereira is an 89 year old male with pmhx HTN and asthma who presents after an unwitnessed syncopal episode with loss of consciousness. He does not have a memory of the episode. is at the bedside and reports he had taking a nitroglycerin with an extra valsartan for his blood pressure SBP 170s. EMS found SBP in the 80s. He denies chest pain, SOB, RUIZ, fever/chills. On evaluation, he shows no deficits, conversing well, cognition present. Laboratory evaluation unremarkable. CT head reports "No acute intracranial abnormality noted. A couple of air bubbles within the region of the masseters and adjacent subcutaneous tissues bilaterally of uncertain etiology. It could be due to infection, trauma or be spontaneous." Chest xray reports "No acute abnormality is displayed." Emile will be admitted to hospitalist service for further evaluation and treatment. Allergies aspirin Allergy (Verified 12/07/17 07:45) Anaphylaxis Ccbawyn-WOZ-TyT Reductase Inhibitor [[place]-Yuc-Cnd Reductase Inhibitor] Adverse Reaction (Severe, Verified 12/07/17 07:45) seecom All antibiotics except clindamycin Allergy (Uncoded 12/26/14 20:28) Unknown Home Medications: Calcium Citrate [Calcitrate] 600 mg PO SEECOM 12/07/17 Cholecalciferol (Vitamin D3) [Vitamin D3] 2,000 unit PO SEECOM 12/07/17 Cyanocobalamin (Vitamin B-12) [Vitamin B12] 1,000 mcg PO DAILY 12/07/17 Folic Acid 0.4 mg PO SEECOM 12/07/17 Magnesium Oxide [Magnesium] 500 mg PO DAILY 12/07/17 Valsartan [Diovan*] 40 mg PO DAILY 12/07/17 Albuterol Sulfate [Proair Respiclick] 90 mcg IH 07/17/23 Pantoprazole [Protonix Tab*] 40 mg PO ACB 30 Days #30 tab 07/18/23 - Past Medical/Surgical History Diabetic: No -: HTN -: Asthma -: Prostate Cancer -: hepatitix B -: Tonsilectomy -: Lump removed from left leg -: David cataract sx Psychosocial/ Personal History: Lives at home with . - Family History Mother -: Hypertension, Other (see notes) Notes: alzeheimers Father Notes: at age 24 from possible trauma - Social History Smoking Status: Never smoker Alcohol use: No CD- Drugs: No Caffeine use: No Review of Systems Other: Per HPI Physical Examination - Physical Exam General: Alert, In no apparent distress, Oriented x3 HEENT: Atraumatic, Normocephalic Neck: Supple, JVD not distended Respiratory: Clear to auscultation bilaterally, Normal air movement Cardiovascular: Normal pulses, Regular rate/rhythm, Normal S1 S2 Capillary refill: <2 Seconds Gastrointestinal: Normal bowel sounds, Soft and benign Musculoskeletal: No clubbing Integumentary: No rashes Neurological: Normal speech, Normal tone - Studies Laboratory Data (last 24 hrs) 06/14/24 06/14/24 06/14/24 11:07 11:07 11:07 WBC 4.10 L Hgb 16.6 Hct 47.4 Plt Count 133 L PT 10.2 INR 0.89 APTT 27.1 L Sodium 137 Potassium 3.8 BUN 16 Creatinine 1.04 Glucose 100 Magnesium 2.8 H Total Bilirubin 0.7 AST 26 ALT 30 Alkaline Phosphatase 77 Assessment and Plan - Plan Assessment and Plan Medication induced syncope Reported Hypotension Air bubbles within the region of the masseters and adjacent subcutaneous tissues bilaterally of uncertain etiology. - Consulted Neurology -plans to see the patient tomorrow, further outpatient evaluation can be conducted - Admit under observation status - Echo performed few days ago, will receive report - PT evaluation requested - Continuous telemetry - IV fluids - Blood pressure stabilized, will titrate antihypertensives - Close monitoring Asthma Prostate cancer Hep B -continue home medications as appropriate DVT ppx SCD Full code LOS 24 hour OBS Discharge Plan: Home Plan to discharge in: 24 Hours - Advance Directives Does patient have a Living Will: No Does patient have a Durable POA for Healthcare: No
--- NOTE | 2024-06-14 14:36 | P.PN ---
This is an attestation to CRISIS SPECIALIST note. Subjective: Presented with syncope, no obvious head trauma, no headache. No chest pain. Chronic issues with shortness of breath from asthma. No nausea or vomiting. No abdominal pain. No obvious bleeding. Looks comfortable in the bed. 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 Plan d/w family at bedside.
[2024-06-14 15:36] VITALS: BMI 20.9
[2024-06-14] MEDS ORDERED: HYDRALAZINE HCL 20 MG/ML VIAL IV PRN (16:21)
[2024-06-14] MEDS: NA CHLORIDE 0.9% 1,000 ML IV SCH (16:53)
[2024-06-14] MEDS ORDERED: ATORVASTATIN 40 MG TAB PO SCH (21:00)
[2024-06-15] MEDS: VALSARTAN 80 MG TAB PO ONE ×2 (00:16→00:43)
[2024-06-15] MEDS: NITROGLYCERIN 0.4 MG/TAB SL ONE ×2 (00:17→07:06)
[2024-06-15 08:07] VITALS: O2SAT 98
[2024-06-15 08:27] VITALS: BP 116/76; TEMP 98
[2024-06-15] MEDS ORDERED: ASPIRIN EC 81 MG TAB PO SCH (09:00)
--- NOTE | 2024-06-15 10:57 | EKG ---
Test Date: 2024-06-14 Test Time: 11:00:55 Public Health Aides Teacher: RORY MEASUREMENT RESULTS: Intervals: Rate: 77 AR: 194 QRSD: 106 QT: 390 QTc: 441 [place]: P: 84 AR: 194 QRS: 87 T: 79 INTERPRETIVE STATEMENTS: Sinus rhythm with premature supraventricular complexes Otherwise normal ECG Compared to ECG 07/17/2023 12:01:37 Atrial premature complex(es) now present Atrial abnormality no longer present Electronically Signed On 06-15-24 10:55:15 CDT by Job Cloud
--- NOTE | 2024-06-15 17:14 | P.DS ---
Admission Date: 06/14/24 Discharge Date: 06/15/24 Disposition: ROUTINE DISCHARGE Reason for Admission: Medication induced syncope Hospital Course: 89-year-old male with history of essential hypertension, admitted for syncopal episode after taking multiple doses of valsartan to control his blood pressure. Patient was found down by at home. EMS was then called and patient was brought to the ER. In the ER, CT of head without contrast and chest x-ray were grossly unremarkable. Patient monitored overnight with no arrhythmia noted. Per patient, he had undergone 2D echo study and coronary angiogram about a week prior to admission and those tests were unremarkable so further cardiac workup was not performed on current admission. Patient was ambulating independently and was then discharged home. Vital Signs/Physical Exam: Temp Pulse Resp BP Pulse Ox 98.0 F 83 18 116/76 94 06/15/24 08:00 06/15/24 08:00 06/15/24 08:00 06/15/24 08:00 06/15/24 08:00 Laboratory Data at Discharge: WBC Cancelled 06/15/24 05:00 Hgb Cancelled 06/15/24 05:00 Hct Cancelled 06/15/24 05:00 Plt Count Cancelled 06/15/24 05:00 PT 10.2 SECONDS (10-13.0) 06/14/24 11:07 INR 0.89 06/14/24 11:07 APTT 27.1 SECONDS (27.2-37.4) L 06/14/24 11:07 Sodium Cancelled 06/15/24 05:00 Potassium Cancelled 06/15/24 05:00 BUN Cancelled 06/15/24 05:00 Creatinine Cancelled 06/15/24 05:00 Glucose Cancelled 06/15/24 05:00 Phosphorus Cancelled 06/15/24 05:00 Magnesium Cancelled 06/15/24 05:00 Total Bilirubin 0.7 mg/dL (0.2-1.0) 06/14/24 11:07 AST 26 U/L (15-37) 06/14/24 11:07 ALT 30 U/L (16-61) 06/14/24 11:07 Alkaline Phosphatase 77 U/L (45-117) 06/14/24 11:07 Triglycerides Cancelled 06/15/24 05:00 Cholesterol Cancelled 06/15/24 05:00 HDL Cholesterol Cancelled 06/15/24 05:00 Cholesterol/HDL Ratio Cancelled 06/15/24 05:00 Home Medications: Calcium Citrate [Calcitrate] 600 mg PO DAILY 12/07/17 Cholecalciferol (Vitamin D3) [Vitamin D3] 2,000 unit PO DAILY 12/07/17 Cyanocobalamin (Vitamin B-12) [Vitamin B12] 1,000 mcg PO DAILY 12/07/17 Folic Acid 0.4 mg PO DAILY 12/07/17 Magnesium Oxide [Magnesium] 500 mg PO DAILY 12/07/17 Valsartan [Diovan*] 80 mg PO DAILY 12/07/17 Albuterol Sulfate [Proair Respiclick] 1 puff IH BID 07/17/23 Budesonide/Formoterol Fumarate [Budesonide-Formoterol 160-4.5] 2 puff IH Q6H PRN 06/14/24 Levalbuterol Tartrate [Levalbuterol Tartrate Hfa] 1 puff IH BID 06/14/24 Physician Discharge Instructions: Follow up with PCP and outpatient cardiology within 1 week post discharge Diet: Regular Activity: Ad leonor Followup: Sumeet Connelly MD [Primary Care Provider] - 1 Week
== END 2024-06-15 09:17 | disposition home or self-care (01) ==
LOC: ER 10:40 → ERHOLD 13:33 → 4TH 14:07
PROVIDERS: ADMIT Hospitalist; ATTEND Internal Medicine
DX: R55 Syncope and collapse (principal); I95.9 Hypotension, unspecified; R41.82 Altered mental status, unspecified; I10 Essential (primary) hypertension; J45.909 Unspecified asthma, uncomplicated; Z88.6 Allergy status to analgesic agent; Z88.1 Allergy status to other antibiotic agents
CPT/HCPCS: 93005; 85025; 80048; 36415; 83735; 85610; 80076; 85730; 81003; 84484; 70450; 71045; 92610; 97112; 97161; 99285; J7030 ×2; G0378; J0360